=== PATIENT | male | born 1935 | race Caucasian/White ===

== ENCOUNTER 2016-08-01 13:36 | Observation (INO) | payer OTHER, BC ==
[~2016-08-01] VITALS: Ht 175.3 cm; Wt 81.8 kg
[~2016-08-01 13:36] MED LIST: CELECOXIB200 MG PO; ENDOCET 5-3251 EACH PO; EXELON PATCH4.6 MG TD; HYDROCODON-ACE1 EAC7 PO; IRON325 M1 PO; KEPPRA500 MG PO; LEXAPRO20 MG PO; LOVENOX40 MG/0.4 SC; TYLENOL EXTRA500 MG PO
[2016-08-01 16:24] LABS: EOSINOPHIL (%) 1.7 % (0-5); EOSINOPHIL COUNT 0.1 K/uL (0-0.3); HEMATOCRIT 45.8 % (38.0-50.0); IMMATURE GRANULOCYTE (%) 0.4 % (0.0-0.7); INSTRUMENT ABS NEUTROPHIL CT 3.2 K/uL; LYMPHOCYTE COUNT 1.5 K/uL (1.0-2.8); MCV 91.1 FL (86-99); MEAN PLAT.VOLUME 9.4 uM^3 (9.0-12.4); MONOCYTE (%) 8.9 % (3-12); MONOCYTE COUNT 0.5 K/uL (0-0.8); NEUTROPHIL (%) 59.9 % (45-76); NEUTROPHIL COUNT 3.2 K/uL (1.8-6.4); PLATELET COUNT 229 K/uL (156-360); RBC DIS.WIDTH-CV 13.3 % (11.8-14.6); RBC DIS.WIDTH-SD 44.8 % (39-53); RED BLOOD COUNT 5.03 M/uL (4.00-5.50); WHITE BLOOD COUNT 5.3 K/uL (4.1-10.2)
[2016-08-01 16:32] LABS: PROTHROMBIN TIME 10.2 (9.2-11.2)
[2016-08-01 16:34] LABS: CHLORIDE 105 mEq/L (99-109); POTASSIUM 3.7 mEq/L (3.7-5.4); SODIUM 138 mEq/L (136-147)
[2016-08-01 16:36] LABS: GLUCOSE 117 mg/dL (70-99)
[2016-08-01 16:37] LABS: ANION GAP 7 MEQ/L (2-14)
[2016-08-01 16:40] LABS: GFR ESTIMATE (CALCULATED) 57 mL/min/
[2016-08-01 16:41] LABS: UREA NITROGEN (BUN) 22 mg/dL (9-23)
[2016-08-01 16:43] LABS: TROP-I INTERPRETATION NEGATIVE; TROPONIN-I 0.02 ng/mL (0.0-0.30)
[2016-08-01] MEDS ORDERED: SAW PALMETTO160 MG PO ×2 (17:26→17:27)
[2016-08-01] MEDS ORDERED: VITAMIN D31000 UNIT PO (17:26)
[2016-08-01] MEDS ORDERED: MAGNESIUM400 M1 PO (17:26)
[2016-08-01] MEDS ORDERED: FIBER500 MG PO (17:26)
[2016-08-01 22:01] LABS: HDL CHOLESTEROL 54 MG/DL (Desirable>=40); LDL CHOLESTEROL 80 mg/dL (Desirable<100); NON-HDL CHOLESTEROL 103 mg/dL (Desirable<160); SAMPLE HEMOLYSIS CHECK 0; SAMPLE ICTERIC CHECK 0; SAMPLE LIPEMIA CHECK 0; TOTAL CHOLESTEROL 157 mg/dL (Desirable<200); TRIGLYCERIDES 117 MG/DL (Normal: <150)
[2016-08-01 22:58] VITALS: BP 162/78
[2016-08-02 04:30] VITALS: BP 131/63
[2016-08-02 06:59] LABS: Estimated Average Glucose 117 mg/dL (70-123); HEMOGLOBIN A1c (GLYCOHEMOGLOB) 5.7 % HGB (Below 5.7)
[2016-08-02 07:20] VITALS: BP 173/75
[2016-08-02 10:56] VITALS: BP 135/66
[2016-08-02] MEDS ORDERED: AMLODIPINE BESYL5 MG PO (13:36)
[2016-08-02] MEDS ORDERED: ASPIR-LOW81 MG PO (13:36)
[2016-08-02] MEDS ORDERED: PRAVASTATIN SOD40 MG PO (13:36)
== END 2016-08-02 14:00 | disposition home or self-care (01) ==
LOC: EME 13:36 → EDOF 20:51 → 5WEST 20:51 → EDOF 21:05 → 5WEST 22:31
PROVIDERS: Emergency Medicine; Hospitalist
DX: G45.9 Transient cerebral ischemic attack, unspecified (principal); I10 Essential (primary) hypertension; H53.8 Other visual disturbances; R41.0 Disorientation, unspecified; F32.9 Major depressive disorder, single episode, unspecified; F41.9 Anxiety disorder, unspecified; Z85.820 Personal history of malignant melanoma of skin
CPT/HCPCS: 70140; 70450; 70551; 71010; 80048; 80061; 83036; 84484; 85025; 85610; 85730; 93005; 93880; 99281; 99285; G0378

== ENCOUNTER 2017-08-21 08:20 | Emergency (ER) | payer OTHER, BC ==
[~2017-08-21] VITALS: Ht 177.8 cm; Wt 82.0 kg
[~2017-08-21 08:20] MED LIST changes: +AMLODIPINE BESYL5 MG PO; +ASPIR-LOW81 MG PO; +FIBER500 MG PO; +MAGNESIUM400 M1 PO; +PRAVASTATIN SOD40 MG PO; +SAW PALMETTO160 MG PO; +VITAMIN D31000 UNIT PO
[2017-08-21 08:54] LABS: BASOPHIL (%) 1.1 % (0-1); BASOPHIL COUNT 0.1 K/uL (0-0.1); EOSINOPHIL (%) 1.5 % (0-5); EOSINOPHIL COUNT 0.1 K/uL (0-0.3); HEMATOCRIT 44.9 % (38.0-50.0); HEMOGLOBIN 15.6 G/DL (12.5-16.6); IMMATURE GRANULOCYTE (%) 0.6 % (0.0-0.7); LYMPHOCYTE (%) 25.1 % (15-42); LYMPHOCYTE COUNT 1.2 K/uL (1.0-2.8); MCH 31.3 PG (29.0-34.0); MCHC 34.7 G/DL (30.0-36.0); MCV 90.2 FL (86-99); MONOCYTE (%) 7.5 % (3-12); MONOCYTE COUNT 0.4 K/uL (0-0.8); NEUTROPHIL (%) 64.2 % (45-76); PLATELET COUNT 217 K/uL (156-360); RBC DIS.WIDTH-CV 13.3 % (11.8-14.6); RBC DIS.WIDTH-SD 44.1 % (39-53); RED BLOOD COUNT 4.98 M/uL (4.00-5.50); WHITE BLOOD COUNT 4.7 K/uL (4.1-10.2)
[2017-08-21 09:03] LABS: CHLORIDE 108 mEq/L (99-109); POTASSIUM 3.8 mEq/L (3.7-5.4); SODIUM 141 mEq/L (136-147)
[2017-08-21 09:04] LABS: GLUCOSE 112 mg/dL (70-99)
[2017-08-21 09:08] LABS: CREATININE 1.1 mg/dL (0.6-1.3); GFR ESTIMATE (CALCULATED) > 59 mL/min/ (58.99-99999)
[2017-08-21 09:09] LABS: UREA NITROGEN (BUN) 25 mg/dL (9-23)
[2017-08-21 09:16] LABS: TROP-I INTERPRETATION NEGATIVE; TROPONIN-I < 0.01 ng/mL (0.0-0.30)
[2017-08-21 10:20] VITALS: BP 153/76
== END 2017-08-21 10:22 | disposition home or self-care (01) ==
LOC: EME 08:20
PROVIDERS: Emergency Medicine
DX: M25.512 Pain in left shoulder (principal); R20.2 Paresthesia of skin; I10 Essential (primary) hypertension; Z85.820 Personal history of malignant melanoma of skin
CPT/HCPCS: 70450; 80048; 81003; 84484; 85025; 93005; 99281; 99284